=== PATIENT | female | born 1995 | race Caucasian/White ===

== ENCOUNTER 2025-10-28 12:23 | Emergency (ER) | payer OTHER, SELFPAY ==
[2025-10-28 12:56] VITALS: BP 104/74; PULSE 88; RESP 16; TEMP 36.5; O2SAT 99
--- NOTE | 2025-10-28 13:01 | ED.FEMALEGU ---
HPI - Female Genitourinary General Chief complaint: Urogenital-Female Stated complaint: uti/bladder inf Time Seen by Provider: 10/28/25 13:05 Source: patient Mode of arrival: ambulatory Limitations: no limitations History of Present Illness HPI Narrative: Angie is a 30-year-old female patient presenting to the clinic today with complaints of possible UTI that just started this morning. She reports she is having decreased urine output, burning with urination, blood in her urine and urgency. Denies any fevers, chills, body aches. Has not taken any medications to treat her symptoms. Denies any abdominal pain or back pain. No nausea or vomiting. Last menstrual period was September 10. Related Data Allergies Allergy/AdvReac Type Severity Reaction Status Date / Time No Known Allergies Allergy Verified 10/28/25 13:04 Review of Systems Review of Systems: Pertinent positives per HPI. Patient denies any fever, chills, rash, headache, visual changes, dizziness, cough, shortness of breath, chest pain, palpitations, nausea, vomiting, diarrhea, constipation, abdominal pain. PMFSH Comments At the time of my signature, I reviewed and agree with the nursing past medical, surgical, social, and family history. There is no relevant family history pertinent to the patient complaint. Exam Narrative: General: Well-developed, well nourished, in no apparent distress. Head: Normocephalic, atraumatic. Cardio: Regular rate and rhythm, s1 and s2 normal, no murmur appreciated. Resp: Clear to auscultation bilaterally, no rhonchi, rales, wheezing or rubs. Abdomen: Soft, pliable, bowel sounds present in all quadrants, suprapubic tender to palpation, no organomegly, no CVAT tenderness. Course Course Level of Care: Express Care Visit Vital Signs Vital signs: Vital Signs Temperature 36.5 C 10/28/25 12:56 Pulse Rate 88 10/28/25 12:56 Respiratory Rate 16 10/28/25 12:56 Blood Pressure 104/74 10/28/25 12:56 Pulse Oximetry 99 10/28/25 12:56 Temperature 36.5 C 10/28/25 12:56 Pulse Rate 88 10/28/25 12:56 Respiratory Rate 16 10/28/25 12:56 Blood Pressure 104/74 10/28/25 12:56 Pulse Oximetry 99 10/28/25 12:56 MDM MDM Narrative Medical decision making narrative: At the time of visit patient is resting comfortably on the exam table. Patient appears to be nontoxic. Complaints of possible UTI that just started this morning. She reports she is having decreased urine output, burning with urination, blood in her urine and urgency. Denies any fevers, chills, body aches. Has not taken any medications to treat her symptoms. Denies any abdominal pain or back pain. No nausea or vomiting. Last menstrual period was September 10. Bedside and urine dip was ordered Labs: Bedside was negative. Urine dip was positive for leukocytes, protein, blood, and nitrates. We will send urine for culture. Plan: I suspect patient has UTI. Prescription for cephalexin was sent to the pharmacy. We will send urine for culture. Supportive measures were discussed with the patient and they voiced understanding discharge instructions and agrees to treatment plan. Return precautions reviewed Differential Diagnosis Differential Diagnosis: Differential diagnostic considerations for female urogenital issues include urinary tract infection, bacterial vaginosis, cervicitis, ovarian cyst, vaginitis, STI exposure, ovarian torsion, ectopic , cyst of Bartholin?s gland, cystitis, dysmenorrhea. Lab Data Labs: Lab Results 10/28/25 10/28/25 Range/Units 13:03 13:04 POC Urine Color Dark POC Urine Clarity Cloudy POC Urine pH 7.0 POC Ur Specif [place] 1.030 POC Urine Protein 3+ (Negative) POC Ur Glucose (UA) Negative (Negative) POC Urine Ketones Negative (Negative) POC Urine Blood 3+ (Negative) POC Urine Nitrite Positive (Negative) POC Urine Bilirubin 1+ (Negative) POC Urine Urobilinogen 1.0 POC U Leukocyte Esteras 1+ (Negative) POC Urine HCG, Qual Negative (Negative) Discharge Plan Discharge Clinical Impression: Urinary tract infection Patient Disposition: Home Condition: Stable Instructions: Antibiotic Form, Urinary Tract Infection in Women (ED) Additional Instructions: Urine positive for leukocytes, nitrates, protein, blood, and bili. We will send urine for culture. Bedside preg test was negative. Take cephalexin as prescribed Increase fluids and stay well hydrated Wipe front to back. May use wet wipes. Avoid tub baths If sexually active- pee before and after intercourse. Wear cotton panties Avoid tight clothing up against the genitals Follow up with your PCP in 1 week if symptoms persist. Patient Language: Bengali Prescriptions: New cephalexin 500 mg capsule 500 mg PO Q12H 7 Days Qty: 14 0RF Follow-up/Referrals: PHYSICIAN,[facility] [Primary Care Provider, Internal Medicine] Time of Disposition: 13:02 Quality NIHSS Nursing Documentation ED NIHSS nursing documentation: reviewed/agree
[2025-10-28 13:05] LABS: BEDSIDEPREGUCG Negative (Negative)
[2025-10-28 13:06] LABS: EDUAAPPEAR Cloudy; EDUABILI 1+ (Negative); EDUABLOOD 3+ (Negative); EDUACOLOR1 Dark; EDUAGLUCOSE Negative (Negative); EDUAKETONE Negative (Negative); EDUALEUKO 1+ (Negative); EDUANITRATE Positive (Negative); EDUAPH 7.0; EDUAPROTEIN 3+ (Negative); EDUASPGRAVITY 1.030; EDUAUROBILI 1.0
== END 2025-10-28 13:09 | disposition home or self-care (01) ==
PROVIDERS: Emergency Provider Nurse Practitioner Family
DX: N39.0 Urinary tract infection, site not specified (principal)
CPT/HCPCS: 81003; 81025; 87077; 87086; 87186; 99213; G0463